=== PATIENT | female | born 1935 | race Caucasian/White ===

== ENCOUNTER 2017-10-25 15:41 | Emergency (ER) | payer MEDICARE, MEDICAID ==
[2017-10-25 18:10] VITALS: BP 0/0
== END 2017-10-25 18:10 | disposition left against medical advice (07) ==
LOC: ED 15:41
DX: R60.0 Localized edema (principal); Z53.21 Procedure and treatment not carried out due to patient leaving prior to being seen by health care provider

== ENCOUNTER → 2019-05-27 10:14 | Day surgery (SDC) | payer MEDICARE, MEDICAID ==
[~2019-05-27 10:14] MED LIST: Clindamycin 600 MG/D5W BAG(*) 600 MG/50 ML BAG IV ONE; Flumazenil* 0.1 MG/ML 5 ML MDV ONE; Heparin 2 UNITS/ML IVPREMIX* 1,000 ML IV ONE; Iodixanol 320 (CONTRAST) 100 ML SDV ONE; Lidocaine 1% INJ* 10 MG/ML 30 ML SDV ONE; Midazolam* 1 MG/ML 5 ML VIAL (5 MG) ONE; Naloxone* 0.4 MG/ML 1 ML VIAL ONE; fentaNYL* 50 MCG/ML 2 ML VIAL (100 MCG VIAL) ONE
[2019-05-27 13:48] VITALS: BP 166/75
--- NOTE | 2019-05-27 15:31 | OP ---
Operative Report - Blank - Operative Report Date of Operation: 05/27/19 Note: Right AVF Angiogram Procedure Note: Performed by: Dr. Broderick Yanes, [facility] Nephrology Procedure date: 05/27/2019 ESRD on HD Percutaneous u/s guided access of AVF with Fistulogram and radiology supervision & interpretation Percutaneous balloon angioplasty of AVF stenosis with radiology supervision and interpretation by me Procedure Note: Consent was obtained, in chart. Patient understands risks, benefits, alternatives and wants to proceed. Following strict hand hygiene and standard sterile precautions, a full sterile attire for myself and all personnel involved in the procedure, including a gown , cap, face mask with an eye shield, and double sterile gloves. The procedure started with 2 ID time out after marking the AVF. Patient was put in supine position. Right UE and Chest were prepped with 2% Chlorhexidine, and the surgical field was surrounded by sterile surgical towels. A sterile full body drape was placed to cover the patient from head to toe. Rt AVF was accessed by a 21-G micro puncture needle, then a 0.018 micro wire was threaded through the 21-G needle towards the outflow, and the 21-G needle was pulled out, leaving the micro wire in, then a 4-Fr sheath and inner stylet were passed over the micro wire into the vein. Both, the micro wire and the inner stylet were removed and the 4-Fr sheath was kept in place. Confirmed using Fluoro. Then, a 0.035 inch floppy tip Hydrophilic wire, was passed through the 4-Fr sheath into the central circulation, confirmed by Fluoro in the IVC. The 4-Fr sheath was exchanged for 6-Fr sheath and dilator, and the dilator was removed. Contrast based images were obtained in different projections from the AV anastomosis to the Rt Atrium and including cine loop and showed: AVF Angiogram: Rt UE AVF Brachio-Basilic AVF: Outflow through Rt Basilic V. The Body of the AVF is superficial, but there are luminal irregularities in the cannulation zone with 1 discrete lesion of 70% stenosis. The AVF drains into the Basilic Outflow: Basilic Central circulation: No stenosis, images in different projections performed. Balloon angioplasty was performed for the above mentioned lesion in AVF, using 6x10 mm then 7x10 mm Rome Balloons. Balloons were inflated slowly to Nominal Pressure for 30 sec then to 14-16 ATMs for 30 Sec. After angioplasty, lesion improved to <30% residual stenosis with no evidence of immediate recoil. Flow is ellsworth and lumen is smoother. Cannulation site was repaired using 2-0 Nylon in a Z-stitch fashion and the 6-Fr sheath was removed and the stitch tightened. Retrograde Arteriogram of the Brachial Radial Artery was done, and the feeding Artery looks healthy same did the AV Anastomosis. No AV Anastomosis stenosis Procedure was considered Complete. Complications: None Estimated Bleeding: < 5cc *Radiation safety: 1)Fluoro Time: 4.6 Minutes 2)Radiation Exposure: 53 mGy *ABx: Clindamycin 600 mg IVPB Pre Op *Medications: 1)IV Contrast: 30 cc Vesipaue 2)Fentanyl: 25 Mcg 3)Versed: 0.25 mg
== END | disposition home or self-care (01) ==
LOC: CHICATH 10:14
PROVIDERS: ATTEND Internal Medicine Nephrology
DX: T82.858A Stenosis of other vascular prosthetic devices, implants and grafts, initial encounter (principal); N18.6 End stage renal disease; I12.9 Hypertensive chronic kidney disease with stage 1 through stage 4 chronic kidney disease, or unspecified chronic kidney disease; E03.9 Hypothyroidism, unspecified; Z79.01 Long term (current) use of anticoagulants; Z88.0 Allergy status to penicillin
CPT/HCPCS: 36901; 36902; 99156; 99157; C1725; C1887; J1644; J2250; J2310; J3010

== ENCOUNTER 2021-07-18 23:38 | Inpatient (IN) ==
[2021-07-19] MEDS ORDERED: Lactated Ringers 1000 ml BAG 1,000 ML IV ONE (00:49)
[2021-07-19 01:10] LABS: ABS Basophils 0.1 10^3/ul (0-0.2); ABS Eosinophils 0.3 10^3/ul (0-0.6); ABS Lymphocytes 1.9 10^3/ul (1.0-4.8); ABS Monocytes 0.6 10^3/ul (0-0.8); ABS Neutrophils 10.6 10^3/ul (1.5-7.7); Eosinophil % 2.1 %; Hematocrit 34 % (35-47); Hemoglobin 11.4 g/dL (12.0-16.0); Lymphocyte % 14.3 %; Mean Corpuscular HGB Conc 34 g/dL (31-36); Mean Corpuscular Hemoglobin 34 pg (27-31); Mean Corpuscular Volume 100 fL (80-97); Mean Platelet Volume 8.1 fL (7.4-10.4); Platelet Count 164 10^3/uL (150-450); Red Cell Distribution Width 15 % (10-15); White Blood Count 13.5 10^3/uL (3.5-10.8)
[2021-07-19 01:11] LABS: Albumin 3.6 g/dL (3.2-5.2); CO2 Carbon Dioxide 24 mmol/L (22-32); Chloride 100 mmol/L (101-111); Sodium 139 mmol/L (135-145)
[2021-07-19 01:17] LABS: ALT 9 U/L (7-52); Albumin/Globulin Ratio 1.2 (1-3); Alkaline Phosphatase 69 U/L (35-149); Blood Urea Nitrogen 42 mg/dL (6-24); C Reactive Protein 2.41 mg/L (<8.01); Glucose 94 mg/dL (70-100); Lipase 199 U/L (11.0-82.0); Total Protein 6.6 g/dL (6.4-8.9); eGFR CKD-EPI 7.1 (>60)
[2021-07-19 01:20] LABS: Anion Gap 15 mmol/L (2-11)
[2021-07-19] MEDS ORDERED: Morphine 4 MG/ML VIAL (1 ml) IV ONE (01:47)
[2021-07-19] MEDS ORDERED: HYDROmorphone 0.5 MG/0.5 ML SYRINGE IV SLOW PU PRN (02:57)
[2021-07-19] MEDS ORDERED: LORazepam 2 mg VIAL 1 ml IV PUSH PRN (03:15)
[2021-07-19] MEDS ORDERED: Atropine 1% (ORAL/SL) 15 ML BTL SL PRN (03:15)
[2021-07-19] MEDS: Morphine 4 MG/ML VIAL (1 ml) IV PRN ×4 (04:01→18:13)
[2021-07-19] MEDS: Ondansetron 4 mg VIAL 2 MG/ML 2 ml VIAL IV PRN ×3 (04:06→18:13)
[2021-07-19 07:40] VITALS: BP 72/48
[2021-07-19] MEDS ORDERED: Acetaminophen IV 1 GM/100ML 100 ML IV PRN (08:21)
[2021-07-19] MEDS: Metoclopramide 5 MG/ML VIAL (10 mg) IV PRN ×2 (09:08→15:51)
== END 2021-07-20 16:20 | disposition expired | DRG 951 ==
LOC: ED 23:38 → SUATTDRO 07-19 03:16 → EDHOLD 07-19 03:16 → SSU 07-19 06:37
PROVIDERS: ADMIT Hospitalist; ATTEND Hospitalist